=== PATIENT | male | born 1995 | race Caucasian/White ===

== ENCOUNTER → 2018-08-30 | Outpatient (CLI) | payer BC ==
--- NOTE | 2018-08-30 15:24 | CPEEG ---
[f rep st] ELECTROENCEPHALOGRAM FOUR-HOUR VIDEO EEG DATE OF STUDY: 08/30/2018 INTERPRETATION: This 4-hour video EEG recording is normal. There were no potentially epileptogenic abnormalities present during the awake or sleep recording recordings. The patient did not have any c linical events during the video EEG monitoring session. REPORT: This 4-hour video EEG contains 10 Hz alpha activity over the posterior head regions. There was no abnormal activation at rest, during photic stimulation or hyperventilation. The patient becam e drowsy and fell into sustained sleep during the study. During drowsiness, the patient had intermit tent frontal alpha activity. In addition, there was frontal alpha activity with arousals. This is a normal variant with drowsiness and arousals. There was no abnormal activation during drowsiness, sl eep, or during times of arousal. The patient did not have any clinical events during the video EEG m onitoring session. /[id number]/MODL
== END ==
LOC: FCPNEURO 08:35
PROVIDERS: ATTEND Psychiatry & Neurology Neurology
DX: H53.9 Unspecified visual disturbance (principal); R40.4 Transient alteration of awareness